=== PATIENT | male | born 1955 | race Two or more races ===

== ENCOUNTER 2019-01-23 22:04 | Inpatient (IN) | payer MEDICAID ==
[~2019-01-23] VITALS: Ht 185.4 cm; Wt 94.8 kg
--- NOTE | 2019-01-23 22:30 | NUR ---
PATIENT BIB STAFF MEMBER FROM AN UNKNOWN FACILITY FOR PSYCH EVAL. PATIENT IS FARSI SPEAKING ONLY AND IS A POOR HISTORIAN. PATIENT STATES HE IS HERE FOR ANALYSIS FOR. NO DISTRESS NOTED
--- NOTE | 2019-01-23 22:45 | NUR ---
FOUND OLD EKG TABS ON PATIENT BODY AND LAB DRAW SITE
[2019-01-23 22:47] LABS: BASOPHILS # (AUTO) 0.1 K/uL (0.0-8.0); HEMOGLOBIN 14.1 g/dL (12.5-16.3); LYMPHOCYTES # (AUTO) 2.5 K/uL (20.0-40.0); MONOCYTES # (AUTO) 0.6 K/uL (2.0-10.0)
--- NOTE | 2019-01-23 22:48 | NUR ---
CALLED TINO TO [facility] [employer] PATIENT TO TRANSFER TO [facility] FOR CT SCAN. ETA IS 25MINS. TRIP #[id number]
[2019-01-23 22:51] LABS: BASOPHILS % (AUTO) 0.6 % (0.0-2.0); CARBON DIOXIDE 27 mmol/L (21-32); CHLORIDE 101 mmol/L (98-107); CREATININE 0.8 mg/dL (0.6-1.3); EOSINOPHILS # (AUTO) 0.2 K/uL (0.0-0.7); EOSINOPHILS % (AUTO) 1.7 % (0.0-7.0); GLUCOSE 124 mg/dL (74-106); HEMATOCRIT 43.5 % (36.7-47.1); LYMPHOCYTES % (AUTO) 28.3 % (20.5-51.5); MEAN CORPUSCULAR HEMOGLOBIN 27.6 uug (23.8-33.4); MEAN CORPUSCULAR HGB CONC 32 g/dL (32.5-36.3); MEAN CORPUSCULAR VOLUME 85.3 fL (73.0-96.2); MONOCYTES % (AUTO) 6.8 % (0.0-11.0); NEUTROPHILS # (AUTO) 5.6 K/uL (1.8-8.9); NEUTROPHILS % (AUTO) 62.6 % (38.5-71.5); PLATELET COUNT (AUTO) 194 K/uL (152-348); POTASSIUM 3.9 mmol/L (3.5-5.1); UREA NITROGEN, BLOOD 19 mg/dL (7-18); WHITE BLOOD COUNT (AUTO) 8.9 K/uL (3.6-10.2)
[2019-01-23 22:56] LABS: ETHANOL < 3 MG/DL (0-0)
[2019-01-23 22:57] LABS: ACETAMINOPHEN < 2.0 ug/mL (10-30); ALANINE AMINOTRANSFERASE 19 U/L (16-63); ALKALINE PHOSPHATASE 62 U/L (50-136); ASPARTATE AMINOTRANSFERASE 11 U/L (15-37); BILIRUBIN,DIRECT 0.2 mg/dL (0.0-0.2); BILIRUBIN,TOTAL 0.8 mg/dL (0.2-1.0); TOTAL PROTEIN, SERUM 6.9 g/dL (6.4-8.2)
[2019-01-23 23:05] LABS: THYROID STIMULATING HORMONE 1.274 mIU/mL (0.358-3.740)
--- NOTE | 2019-01-23 23:14 | NUR ---
PATIENT TRANSPORTED [facility] CT SCAN VIA [facility]
--- NOTE | 2019-01-24 00:01 | NUR ---
PATIENT BACK FROM CT SCAN WITH NO DISTRESS NOTED
--- NOTE | 2019-01-24 00:04 | NUR ---
PATIENT OUT OF UNIT FOR X RAY VIA WHEELCHAIR
--- NOTE | 2019-01-24 00:23 | NUR ---
MEDICALLY CLEARED BY DR SIDHU
--- NOTE | 2019-01-24 00:26 | NUR ---
CALLED DOMINGO ASKEW LCSW FOR PSYCH EVAL. WILL COME EVAL PATIENT AFTER UDS IS COMPLETED
--- NOTE | 2019-01-24 00:50 | NUR ---
UNABLE TO OBTAIN URINE SAMPLE. DR SIDHU AWARE. RECIEVED ORDERS AND CARRIED OUT.
[2019-01-24] MEDS ORDERED: IV NORMAL SALINE 1000 ML BAG IV ONE (01:15)
--- NOTE | 2019-01-24 01:16 | NUR ---
DOMINGO ASKEW FROM PET TEAM HERE TO EVAL PATIENT
[2019-01-24 01:28] LABS: *BILIRUBIN,URIN NEGATIVE (NEGATIVE); *CLARITY,URINE CLOUDY (CLEAR); *COLOR,URINE YELLOW (YELLOW); *KETONES,URINE TRACE (NEGATIVE); *UROBILINOGEN,URINE 0.2 E.U./dl (NORMAL); LEUKOCYTE ESTERASE ,URINE 1+ (NEGATIVE); NITRITE, URINE NEGATIVE (NEGATIVE); PH,URINE 6.5 (5.0-8.0); UGLUCOSE NEGATIVE (NEGATIVE)
--- NOTE | 2019-01-24 01:30 | NUR ---
REMOVED HEP LOCK PATIENT REQUESTED
[2019-01-24 01:37] LABS: *AMPHETAMINE, URINE NEGATIVE (NEGATIVE); *BARBITURATE, URINE NEGATIVE (NEGATIVE); *CANNABINOID, URINE NEGATIVE (NEGATIVE); *COCCAINE, URINE NEGATIVE (NEGATIVE); *OPIATE, URINE NEGATIVE (NEGATIVE); *PHENCYCLIDINE SCREEN,URINE NEGATIVE (NEGATIVE)
[2019-01-24 01:44] LABS: *BLOOD, URINE TRACE (NEGATIVE)
[2019-01-24] MEDS ORDERED: LORAZEPAM 0.5 MG TABLET PO ONE (01:45)
[2019-01-24 01:46] LABS: BACTERIA,URINE MANY /HPF (NONE SEEN); SQUAMOUS EPITHELIAL CELL,UR FEW /HPF (NONE SEEN); WBC,URINE 20-50 /HPF (0-3)
[2019-01-24] MEDS ORDERED: LORAZEPAM 1 MG TABLET ONE (01:46)
--- NOTE | 2019-01-24 01:52 | NUR ---
PAGED EPPIC PANEL. WAITING FOR MARKEL CORNELL TO CALL BACK
[2019-01-24] MEDS ORDERED: NITROFURANTOIN/NITROFURAN MAC 100 MG CAPSULE ONE (01:56)
[2019-01-24] MEDS ORDERED: NITROFURANTOIN/NITROFURAN MAC 100 MG CAPSULE PO ONE (02:00)
--- NOTE | 2019-01-24 02:00 | NUR ---
DR SIDHU SPEAKING WITH MARKEL CORNELL [employer] [facility]
[2019-01-24] MEDS ORDERED: GEODON PO (02:02)
[2019-01-24] MEDS ORDERED: ONDANSETRON 4 MG/2 ML VIAL IV PRN (02:15)
[2019-01-24] MEDS ORDERED: Z GUARD REMEDY PASTE 57 GM TUBE TOP PRN (02:15)
[2019-01-24] MEDS ORDERED: MAGNESIUM HYDROXIDE 30 ML LIQUID UDC PO PRN (02:15)
--- NOTE | 2019-01-24 04:18 | NUR ---
TRANSFERED TO 3RD FLOOR MED SURG VIA WHEELCHAIR
--- NOTE | 2019-01-24 04:20 | NUR ---
RECEIVED PATIENT VIA W/C FROM ER. REPORTED BY ER NURSE THAT PATIENT WAS PREVIOUSLY MEDICATED WITH ATIVAN IV PRIOR TO ADMISSION TO THE FLOOR. PATIENT IS SEDATED AT THIS TIME. PATIENT ASSISTED TO BED WITH MAX ASSIST. VSS. PATIENT IS AROUSABLE TO NAME ONLY BUT QUICKLY FALLS BACK ASLEEP. NO S/S OF PAIN OR DISCOMFORT. NO RESP. DISTRESS NOTED. BED ALARM ON. CALL LIGHT IN REACH. ALL NEEDS ATTENDED. WILL CONTINUE TO MONITOR AND ASSESS.
[2019-01-24] MEDS: IV NS 1000 ML 1,000 ML IV PRN ×2 (04:48→20:14)
[2019-01-24 05:33] VITALS: BP 120/70
[2019-01-24] MEDS ORDERED: PANTOPRAZOLE SODIUM 40 MG TABLET.DR PO SCH (07:00)
--- NOTE | 2019-01-24 07:45 | NUR ---
on bed, sleeping comfortably. no distress noted.
--- NOTE | 2019-01-24 08:30 | NUR ---
oob, went to resroom, gait weak, unsteady. voided . returned to bed, sleeping well, unable to eat breakfast yet. Addendum: 01/24/19 at 0947 by SID CHAMBERS RN reminded to use call light for brp. will monitor. on bed alarm
[2019-01-24] MEDS ORDERED: ENOXAPARIN SODIUM 40 MG/0.4 ML DISP.SYRIN SQ SCH (09:00)
[2019-01-24] MEDS ORDERED: CEphaleXIN 500 MG CAPSULE PO SCH (09:00)
[2019-01-24] MEDS ORDERED: CEphaleXIN 250 MG CAPSULE PO SCH (09:00)
--- NOTE | 2019-01-24 09:43 | NUR ---
seen by PT for aristides, unable to participate at this time, sleeping. still not able to eat breakfast.
--- NOTE | 2019-01-24 09:45 | NUR ---
unable to give am meds for now. will give when awake.
--- NOTE | 2019-01-24 11:00 | NUR ---
awake, took am meds late. ate breakfast well.
[2019-01-24] MEDS: PANTOPRAZOLE SODIUM 40 MG TABLET.DR PO SCH (11:14)
[2019-01-24 11:46] VITALS: BP 118/71
[2019-01-24] MEDS: CEFTRIAXONE 1 G in IV DEXTROSE 5% 50 ML IV SCH (12:36)
--- NOTE | 2019-01-24 13:00 | NUR ---
good appetite, ate well for lunch
--- NOTE | 2019-01-24 15:19 | NUR ---
seen by Dr Pineda , with order and carried out. patient aware of meds use and side effect. verbalized understanding
[2019-01-24] MEDS: BENZTROPINE MESYLATE 0.5 MG TABLET PO SCH ×2 (15:25→20:14)
[2019-01-24] MEDS: risperiDONE 1 MG/ML UDC PO SCH ×2 (15:31→20:16)
[2019-01-24 15:56] VITALS: BP 146/69
--- NOTE | 2019-01-24 17:26 | NUR ---
seen by dr mcleod.
--- NOTE | 2019-01-24 19:30 | NUR ---
patient received in bed. a/o x1 and confused. safety and comfort measures provided. will continue care for patient.
[2019-01-24] MEDS: DOCUSATE SODIUM 250 MG CAPSULE PO SCH (20:14)
[2019-01-24 20:21] VITALS: BP 135/76
[2019-01-24] MEDS: ACETAMINOPHEN 325 MG TABLET PO PRN (20:32)
[2019-01-25 05:22] VITALS: BP 120/69
--- NOTE | 2019-01-25 05:57 | NUR ---
patient sleeping intermittently. a/o x1 and confused due to psychosis. safety and comfort measures provided. all medications administered and tolerated well. iv patent and intact. will endorse care to morning nurse.
[2019-01-25] MEDS: PANTOPRAZOLE SODIUM 40 MG TABLET.DR PO SCH (06:25)
[2019-01-25] MEDS: ACETAMINOPHEN 325 MG TABLET PO PRN (06:27)
[2019-01-25 06:58] LABS: BASOPHILS % (AUTO) 0.3 % (0.0-2.0); EOSINOPHILS # (AUTO) 0.1 K/uL (0.0-0.7); EOSINOPHILS % (AUTO) 1.7 % (0.0-7.0); HEMATOCRIT 42.9 % (36.7-47.1); HEMOGLOBIN 13.8 g/dL (12.5-16.3); LYMPHOCYTES # (AUTO) 2.2 K/uL (20.0-40.0); LYMPHOCYTES % (AUTO) 33.4 % (20.5-51.5); MEAN CORPUSCULAR HEMOGLOBIN 27.4 uug (23.8-33.4); MEAN CORPUSCULAR HGB CONC 32 g/dL (32.5-36.3); MEAN CORPUSCULAR VOLUME 84.9 fL (73.0-96.2); MONOCYTES # (AUTO) 0.5 K/uL (2.0-10.0); MONOCYTES % (AUTO) 6.9 % (0.0-11.0); NEUTROPHILS # (AUTO) 3.8 K/uL (1.8-8.9); NEUTROPHILS % (AUTO) 57.7 % (38.5-71.5); PLATELET COUNT (AUTO) 193 K/uL (152-348); RED BLOOD CELL COUNT(AUTO) 5.06 MIL/uL (4.06-5.63); WHITE BLOOD COUNT (AUTO) 6.6 K/uL (3.6-10.2)
[2019-01-25 07:06] LABS: CREATININE 0.8 mg/dL (0.6-1.3); PHOSPHOROUS 3.1 mg/dL (2.5-4.9); POTASSIUM 3.7 mmol/L (3.5-5.1)
[2019-01-25] MEDS: risperiDONE 1 MG/ML UDC PO SCH ×2 (08:03→20:16)
[2019-01-25] MEDS: BENZTROPINE MESYLATE 0.5 MG TABLET PO SCH ×2 (08:04→20:16)
[2019-01-25 08:08] LABS: THYROID STIMULATING HORMONE 1.331 mIU/mL (0.358-3.740)
[2019-01-25] MEDS: IV NS 1000 ML 1,000 ML IV PRN (10:09)
[2019-01-25 11:15] VITALS: BP 129/71
[2019-01-25] MEDS: CEFTRIAXONE 1 G in IV DEXTROSE 5% 50 ML IV SCH (12:28)
[2019-01-25 15:06] VITALS: BP 119/71
--- NOTE | 2019-01-25 19:30 | NUR ---
Patient received lying in bed and confused. no signs of acute distress. safety and comfort measures provided. bed in lowest position, side rails up x2, call light within reach. will continue care.
[2019-01-25 20:00] VITALS: BP 118/72
[2019-01-25] MEDS: DOCUSATE SODIUM 250 MG CAPSULE PO SCH (20:16)
[2019-01-26] MEDS: IV NS 1000 ML 1,000 ML IV PRN ×2 (00:06→18:06)
--- NOTE | 2019-01-26 00:15 | NUR ---
patient found in room with IV line disconnected. NS was leaking and disconnected hanging on IV pole. reconnected primary line to patient and started Ns IV.
--- NOTE | 2019-01-26 02:18 | NUR ---
patient woke up from sleep and left his room dragging the IV pole plug on the ground and wondering around the hallway. He was trying to plug in the IV pole to a outlet in the hallway. he was confused and trying to pull out IV line again from arm saying that he does not need it.
--- NOTE | 2019-01-26 02:19 | NUR ---
patient disconnected from IV line for safety. will continue to monitor and re-attach IV when patient is stable.
[2019-01-26 04:50] VITALS: BP 118/72
--- NOTE | 2019-01-26 06:05 | NUR ---
patient appears stable at this time. re-attached IV line. will continue to monitor for patient safety.
[2019-01-26] MEDS: PANTOPRAZOLE SODIUM 40 MG TABLET.DR PO SCH (06:10)
--- NOTE | 2019-01-26 08:14 | NUR ---
RECEIVED IN BED AWAKE ALERT FORGETFUL PATIENT WAS SEEN UP AND ATTEMPTING TO GO TO THE BATHROOM WITH THE IV CORD STILL ATTACHED PULLING ON IT ASSISTED WITH REMOVING THE CORD AND PATIENT WENT INTO THE BATHROOM AND VOIDED AND BACK TO BED PATIENT WAS INSTRUCTED TO CALL FOR ASSISTANCE TO THE BATHROOM TO PREVENT FALLS CALL LIGHTS AND PERSONAL BELONGINGS PLACED WITHIN EASY REACH WILL CONTINUE TO OBSERVE AND PROVIDE SAFE AND THERAPEUTIC ENVIRONMENT AT ALL TIMES.
[2019-01-26] MEDS: BENZTROPINE MESYLATE 0.5 MG TABLET PO SCH ×2 (08:35→20:31)
[2019-01-26] MEDS: risperiDONE 1 MG/ML UDC PO SCH ×2 (08:35→20:31)
[2019-01-26] MEDS ORDERED: ALBUTEROL SULFATE 2.5 MG/3 ML NEBU NEB PRN (10:45)
[2019-01-26 11:11] VITALS: BP 133/79
[2019-01-26] MEDS: NICOTINE 14 MG/24HR PATCH TD SCH (11:17)
[2019-01-26] MEDS: CEFTRIAXONE 1 G in IV DEXTROSE 5% 50 ML IV SCH (12:17)
--- NOTE | 2019-01-26 12:35 | NUR ---
AMBULATORY IN THE ROOM DENIES PAIN OR DISCOMFORTS REMAIN ON ATB ORDERED WITH NO ADVERSE OR ALLERGIC REACTIONS ORDERED MADE COMFORTABLE WILL CONTINUE TO OBSERVE AND PROVIDE SAFE AND THERAPEUTIC ENVIRONMENT AT ALL TIMES.
[2019-01-26 15:24] VITALS: BP 143/85
--- NOTE | 2019-01-26 17:38 | NUR ---
REMAINS COOPERATIVE AND COMPLIANT WITH MEDICATIONS DENIES DISCOMFORTS WILL CONTINUE TO OBSERVE.
[2019-01-26 19:54] VITALS: BP 124/77
--- NOTE | 2019-01-26 20:00 | NUR ---
PATIENT AWAKE, SITTING AT EDGE OF BED. A/O X2-3. FARSI SPEAKING BUT ABLE TO MAKE SIMPLE NEEDS KNOWN. PATIENT DENIES PAIN OR DISCOMFORT. NO RESP. DISTRESS NOTED. IVF INFUSING WELL. VS WNL. CALL LIGHT IN REACH. ALL NEEDS ATTENDED. WILL CONTINUE TO MONITOR AND ASSESS.
[2019-01-26] MEDS: DOCUSATE SODIUM 250 MG CAPSULE PO SCH (20:31)
[2019-01-27 05:03] VITALS: BP 110/52
[2019-01-27 06:11] LABS: BASOPHILS % (AUTO) 0.2 % (0.0-2.0); EOSINOPHILS # (AUTO) 0.1 K/uL (0.0-0.7); EOSINOPHILS % (AUTO) 1.2 % (0.0-7.0); HEMATOCRIT 43.6 % (36.7-47.1); LYMPHOCYTES % (AUTO) 24.9 % (20.5-51.5); MEAN CORPUSCULAR HEMOGLOBIN 27.3 uug (23.8-33.4); MEAN CORPUSCULAR HGB CONC 32 g/dL (32.5-36.3); MEAN CORPUSCULAR VOLUME 84.8 fL (73.0-96.2); MONOCYTES # (AUTO) 0.5 K/uL (2.0-10.0); MONOCYTES % (AUTO) 5.6 % (0.0-11.0); NEUTROPHILS # (AUTO) 5.6 K/uL (1.8-8.9); NEUTROPHILS % (AUTO) 68.1 % (38.5-71.5); PLATELET COUNT (AUTO) 183 K/uL (152-348); RED BLOOD CELL COUNT(AUTO) 5.15 MIL/uL (4.06-5.63); WHITE BLOOD COUNT (AUTO) 8.2 K/uL (3.6-10.2)
--- NOTE | 2019-01-27 06:15 | NUR ---
PATIENT AWAKE IN BED. HEPLOCK NOTED TO LEFT AC, INFILTRATED AND LEAKING. REMOVED. NEW HEPLOCK INSERTION, ATTEMPTED X2, UNABLE TO REINSERT. PATIENT REFUSED FOR REINSERTION AT THIS TIME. WILL CONTINUE TO MONITOR AND ASSESS.
[2019-01-27] MEDS: PANTOPRAZOLE SODIUM 40 MG TABLET.DR PO SCH (06:22)
[2019-01-27 06:26] LABS: CREATININE 0.9 mg/dL (0.6-1.3); MAGNESIUM 1.9 mg/dL (1.8-2.4); PHOSPHOROUS 3.3 mg/dL (2.5-4.9); POTASSIUM 3.3 mmol/L (3.5-5.1)
--- NOTE | 2019-01-27 07:30 | NUR ---
AWAKE ALERT BUT WITH LANGUAGE DIFFICULTY AND BARRIERS PER REPORT HEPLOCK HAD INFILTERATED AND ATTEMPTS WERE UNSUCCESSFUL BUT PATIENT NOT ALLOWING US TO TRY ANYMORE.PATIENT STATED DRINKING ENOUGH AND DOES NOT NEED THE IV FLUIDS WILL INFORM MD FOR ORDERS TO DISCONTINUE THE IVF.PATIENT IS CURRENTLY ON ORAL ATB ORDERED WITH NO ADVERSE OR ALLERGIC REACTIONS AT THIS TIME WILL CONTINUE TO OBSERVE.
[2019-01-27] MEDS: BENZTROPINE MESYLATE 0.5 MG TABLET PO SCH ×2 (08:02→20:29)
[2019-01-27] MEDS: ASPIRIN EC 81 MG TABLET.DR PO SCH (08:02)
[2019-01-27] MEDS: risperiDONE 1 MG/ML UDC PO SCH ×2 (08:02→20:29)
[2019-01-27] MEDS: CEphaleXIN 500 MG CAPSULE PO SCH ×2 (08:02→20:29)
[2019-01-27] MEDS: NICOTINE 14 MG/24HR PATCH TD SCH (08:03)
--- NOTE | 2019-01-27 10:15 | NUR ---
DISCHARGE ORDERS NOTED RIVET HEATER/GLOBAL LOGISTICS MANAGER AWARE AWAITING FOR PATIENTS FINAL DESTINATIONS AT THIS TIME.
--- NOTE | 2019-01-27 10:38 | NUR ---
POTASSIUM LEVEL IS 3.3 WINNIE ASSOCIATE MERCHANDISER AWARE WITH REPLACEMENT ORDERS AND NOTED
[2019-01-27 10:59] VITALS: BP 117/59
[2019-01-27] MEDS ORDERED: POTASSIUM CHLORIDE 20 MEQ POWDER PACKET PO ONE (11:00)
[2019-01-27] MEDS ORDERED: POTASSIUM CHLORIDE 20 MEQ TAB.PRT.SR PO ONE (11:30)
[2019-01-27 15:37] VITALS: BP 118/73
--- NOTE | 2019-01-27 17:42 | NUR ---
NEW ORDER NOTED TO D/C IVF PATIENT IS DISCHARGED BUT IS HAVING PLACEMENT ISSUES PATIENT REFUSES TO HAVE HEPLOCK REINSERTED
--- NOTE | 2019-01-27 19:40 | NUR ---
Received patient resting in bed, easily to arouse. No signs of acute distress noted. No complaints of pain or SOB. Patient able to ambulate to restroom. Safety measures initiated. Bed is low and locked, call light within reach. Will continue to monitor.
[2019-01-27] MEDS: DOCUSATE SODIUM 250 MG CAPSULE PO SCH (20:29)
[2019-01-27 20:55] VITALS: BP 118/68
[2019-01-28 06:02] VITALS: BP 115/79
[2019-01-28] MEDS: PANTOPRAZOLE SODIUM 40 MG TABLET.DR PO SCH (06:02)
--- NOTE | 2019-01-28 06:02 | NUR ---
Patient slept well throughout night. No signs of acute distress noted. No complaints of pain or SOB. Vitals are WNL. All medication taken as ordered and tolerated well. Safety measures given.
--- NOTE | 2019-01-28 07:45 | NUR ---
RECEIVED PATIENT IN BED, AWAKE. AOX3. PATIENT DENIES PAIN OR SOB AT THIS TIME. PATIENT CONTINUES TO REFUSE IV PLACEMENT. SAFETY AND FALL PREVENTION IN PLACE. BED IN LOW POSITION. CALL LIGHT IN REACH. BED LOCKED. WILL CONTINUE TO MONITOR.
[2019-01-28] MEDS: ASPIRIN EC 81 MG TABLET.DR PO SCH (08:53)
[2019-01-28] MEDS: BENZTROPINE MESYLATE 0.5 MG TABLET PO SCH ×2 (08:53→20:38)
[2019-01-28] MEDS: CEphaleXIN 500 MG CAPSULE PO SCH ×2 (08:53→20:38)
[2019-01-28] MEDS: risperiDONE 1 MG/ML UDC PO SCH ×2 (08:53→20:38)
[2019-01-28] MEDS: NICOTINE 14 MG/24HR PATCH TD SCH (08:54)
[2019-01-28 11:45] VITALS: BP 127/75
[2019-01-28 16:27] VITALS: BP 121/82
--- NOTE | 2019-01-28 18:36 | NUR ---
PATIENT AWAKE, ALERT X3. DENIES PAIN OR SOB. VITAL SIGNS STABLE THROUGHOUT THE SHIFT. PATIENT CONTINUES TO REFUSE IV. SAFETY AND FALL PREVENTION IN PLACE. BED IN LOW POSITION AND LOCKED. CALL LIGHT IN REACH. WILL GIVE REPORT TO ONCOMING NURSE.
--- NOTE | 2019-01-28 20:00 | NUR ---
Received pt. awake lying in bed denying any discomfort or pain. No complaints of acute distress or SOB. Pt. refuses IV hep lock. Dr. villar as stated by AM nurse Evelin. Safety measures in place, will continue to monitor pt.
[2019-01-28 20:18] VITALS: BP 117/73
[2019-01-28] MEDS: DOCUSATE SODIUM 250 MG CAPSULE PO SCH (20:38)
[2019-01-29 05:21] VITALS: BP 132/85
[2019-01-29] MEDS: PANTOPRAZOLE SODIUM 40 MG TABLET.DR PO SCH (06:03)
--- NOTE | 2019-01-29 06:59 | NUR ---
Pt. slept intermittently throughout night. Pt. appeared to be talking to himself. Reoriented pt. to reality. Pt. denies any pain or discomfort. Safety measures in place. Will continue to monitor.
--- NOTE | 2019-01-29 07:30 | NUR ---
RECEIVED PATIENT SITTING IN CHAIR. AOX3, TALKS TO HIMSELF. REFUSED PLACEMENT OF IV. DENIES SOB OR PAIN. DENIES N/V. SAFETY AND FALL PRECAUTIONS IN PLACE. BED IN LOW POSITION. CALL LIGHT IN REACH. BED LOCKED. WILL CONTINUE TO MONITOR.
--- NOTE | 2019-01-29 07:45 | NUR ---
PATIENT RECEIVED AWAKE, ORIENTED X4. STATING SHE WANTS TO GO HOME TODAY. DENIES SOB. COMPLAINS OF LEFT LEG AND PELVIC PAIN THAT NEVER GOES AWAY. DECLINED NORCO PAIN MEDICATION AT THIS TIME. DENIES N/V. LEFT FA FLUSHED AND INTACT. SAFETY AND FALL PRECAUTIONS IN PLACE. BED IN LOW POSITION, LOCKED. CALL LIGHT IN REACH. WILL CONTINUE TO MONITOR. Addendum: 01/29/19 at 0857 by LOI GÓMEZ RN WRONG PATIENT NOTE. PLEASE DISREGARD.
[2019-01-29] MEDS: risperiDONE 1 MG/ML UDC PO SCH (08:26)
[2019-01-29] MEDS: BENZTROPINE MESYLATE 0.5 MG TABLET PO SCH (08:27)
[2019-01-29] MEDS: NICOTINE 14 MG/24HR PATCH TD SCH (08:27)
[2019-01-29] MEDS: CEphaleXIN 500 MG CAPSULE PO SCH (08:27)
[2019-01-29] MEDS: ASPIRIN EC 81 MG TABLET.DR PO SCH (08:27)
[2019-01-29 12:00] VITALS: BP 126/77
--- NOTE | 2019-01-29 16:32 | NUR ---
PATIENT DISCHARGED TO [facility]. DISCHARGE INSTRUCTIONS PROVIDED AND WENT OVER WITH PATIENT. RX GIVEN TO PATIENT AND COPY IN CHART. BELONGINGS LIST WENT OVER WITH PATENT AND SIGNED. BELONGINGS THAT WERE IN SAFE RETURNED TO PATIENT AND WENT OVER WITH BRIANNA. [facility] TAKEN OFF. PATIENT LEFT VIA W/C TO LOBBY WITH B[facility] AND [facility]ARD AND CARE STAFF.
== END 2019-01-29 16:30 | DRG 463 ==
LOC: ER 22:06 → MEDSURG3 01-24 03:00
PROVIDERS: ADMIT Registered Nurse; ATTEND Internal Medicine
DX: N39.0 Urinary tract infection, site not specified (principal); G93.41 Metabolic encephalopathy; D68.59 Other primary thrombophilia; F20.9 Schizophrenia, unspecified; F03.90 Unspecified dementia, unspecified severity, without behavioral disturbance, psychotic disturbance, mood disturbance, and anxiety; R53.1 Weakness; F17.210 Nicotine dependence, cigarettes, uncomplicated; J44.9 Chronic obstructive pulmonary disease, unspecified; Z91.19 Patient's noncompliance with other medical treatment and regimen; E66.9 Obesity, unspecified; Z68.27 Body mass index [BMI] 27.0-27.9, adult; T23.021A Burn of unspecified degree of single right finger (nail) except thumb, initial encounter; X08.8XXA Exposure to other specified smoke, fire and flames, initial encounter; Y92.89 Other specified places as the place of occurrence of the external cause; Z59.0 Homelessness; Z79.899 Other long term (current) drug therapy; F09 Unspecified mental disorder due to known physiological condition; M48.10 Ankylosing hyperostosis [Forestier], site unspecified; R73.9 Hyperglycemia, unspecified; R25.1 Tremor, unspecified
CPT/HCPCS: 36415; 70450; 71045; 80307; 83735; 84100; 84443; 85025; 87086; 93005; 97116; 97530; A4663; G0378; G0480; G0480-TC; J0696; J1650; J7030; J7060